=== PATIENT | female | born 1985 | race Caucasian/White ===

== ENCOUNTER 2018-06-17 17:19 | Inpatient (IN) | payer OTHER ==
[2018-06-17] MEDS ORDERED: NACL 0.9% 3 ML SYG IV (18:00)
[2018-06-17] MEDS: predniSONE 50 MG TAB PO (18:35)
[2018-06-17] MEDS: ACETAMINOPHEN 325 MG TAB PO (19:32)
[2018-06-17] MEDS: ALBUTEROL/IPRATROPIUM (NEB) 3 ML AMP HHN (20:08)
[2018-06-17] MEDS: ASA/ACETAMINOPHEN/CAFF TAB PO (21:38)
[2018-06-17] MEDS: OSELTAMIVIR 75 MG CAP PO (21:38)
[2018-06-17] MEDS: KETOROLAC 15 MG INJ IV (23:34)
[2018-06-18] MEDS: morphine SULFATE/PF (2 MG/2 ML) SYG IV (00:57)
[2018-06-18] MEDS: ALBUTEROL/IPRATROPIUM (NEB) 3 ML AMP HHN ×3 (01:54→13:44)
[2018-06-18 05:42] LABS: ADD MAN DIFF? NO
[2018-06-18 05:51] LABS: WHITE BLOOD COUNT 16.6 10^3/ul (4.8-10.8)
[2018-06-18 05:51] LABS: BASOPHILS % 0.1 % (0.0-2.0); HEMATOCRIT 30.2 % (37.0-47.0); HEMOGLOBIN 8.9 g/dl (12.0-16.0); LYMPHOCYTES # 1.3 10^3/ul (0.8-2.9); LYMPHOCYTES % 7.5 % (15.0-51.0); MEAN CORPUSCULAR HGB CONC 29.5 g/dl (32.0-37.0); MEAN CORPUSCULAR VOLUME 71.2 fl (82.0-101.0); MEAN PLATELET VOLUME 10.8 fl (7.4-10.4); MONOCYTE # 0.5 10^3/ul (0.3-0.9); NEUTROPHIL # 14.7 10^3/ul (1.6-7.5); NEUTROPHILS % 88.7 % (39.0-77.0); PLATELET COUNT 292 10^3/UL (140-415); RED BLOOD COUNT 4.24 10^6/ul (4.20-5.40); RED CELL DISTRIBUTION WIDTH 17.7 % (11.5-14.5)
[2018-06-18 05:58] LABS: HEMOGLOBIN A1C 5.8 % (0-5.9)
[2018-06-18 06:25] LABS: ALANINE AMINOTRANSFERASE 32 IU/L (13-69); ALBUMIN 3.9 g/dl (3.3-4.9); ALBUMIN/GLOBULIN RATIO 1.34; ALKALINE PHOSPHATASE 42 IU/L (42-121); ANION GAP 9 (5-13); ASPARTATE AMINO TRANSFERASE 24 IU/L (15-46); BILIRUBIN,INDIRECT 0.3 mg/dl (0-1.1); BILIRUBIN,TOTAL 0.3 mg/dl (0.2-1.3); BLOOD UREA NITROGEN 7 mg/dl (7-20); CALCIUM 9.2 mg/dl (8.4-10.2); CARBON DIOXIDE 21 mmol/L (21-31); CHLORIDE 110 mmol/L (97-110); Estimated GFR > 60 mL/min (>60); GLUCOSE 155 mg/dl (70-220); POTASSIUM 4.5 mmol/L (3.5-5.1); SODIUM 140 mmol/L (135-144); TOTAL PROTEIN 6.8 g/dl (6.1-8.1)
[2018-06-18 08:25] LABS: IRON 39 ug/dl (35-150)
[2018-06-18 08:34] LABS: % IRON SATURATION 9 % SAT (22-52); TOTAL IRON BINDING CAPACITY 411 ug/dl (241-421)
[2018-06-18] MEDS: OSELTAMIVIR 75 MG CAP PO (08:38)
[2018-06-18] MEDS: predniSONE 50 MG TAB PO (08:38)
[2018-06-18] MEDS: ENOXAPARIN 30 MG/0.3 ML SYG SC (08:44)
[2018-06-18 09:02] LABS: FERRITIN 4.2 ng/ml (6.2-137.0)
[2018-06-18] MEDS: SOD FERRIC GLUC COMPLX 125 MG in SOD CHLORIDE 0.9% 100 ML IVPB (13:13)
== END 2018-06-18 15:18 | disposition home or self-care (01) | DRG 203 ==
LOC: 6WM 17:19
DX: J45.901 Unspecified asthma with (acute) exacerbation (principal); J11.1 Influenza due to unidentified influenza virus with other respiratory manifestations; D50.9 Iron deficiency anemia, unspecified
CPT/HCPCS: 80053; 82728; 83036; 83540; 85025; 94640; 94664

== ENCOUNTER 2018-07-16 02:25 | Emergency (ER) | payer SELFPAY, OTHER | END 2018-07-16 04:44 | disposition left against medical advice (07) | LOC: FTE 02:25 | DX: Z53.21 Procedure and treatment not carried out due to patient leaving prior to being seen by health care provider (principal) ==